=== PATIENT | male | born 1965 | race African-American/Black ===

== ENCOUNTER 2020-11-10 09:38 | Inpatient (IN) | payer MEDICAID ==
[~2020-11-10] VITALS: Ht 188 cm; Wt 85.7 kg
[2020-11-10] MEDS ORDERED: ONDANSETRON HCL 4MG/2ML INJ IV ONE ×3 (10:15→20:45)
[2020-11-10] MEDS ORDERED: MORPHINE SULFATE 4 MG/ML CPJ (NOT FOR IM USE) IV ONE (10:30)
[2020-11-10 11:09] LABS: CHLORIDE 105 mEq/L (98-107); HEMATOCRIT. 48.2 % (42.0-52.0); HEMOGLOBIN. 16.2 g/dL (14.0-18.0); MEAN CORPUSCULAR HEMOGLOBIN 30.3 pg (28.0-32.0); MEAN CORPUSCULAR VOLUME 90.2 fL (80.0-94.0); MEAN PLATELET VOLUME 8.6 fl (7.4-10.4); PLATELET 186 x1000/uL (130-400); RED BLOOD CELL COUNT 5.34 mill/uL (4.7-6.1)
[2020-11-10] MEDS ORDERED: CEFTRIAXONE 1 G PREMIX 50 ML IV ONE (11:15)
[2020-11-10 11:18] LABS: INR 1.1; PROTHROMBIN TIME 11.5 sec (9.6-11.0)
[2020-11-10 11:48] LABS: PLATELET ESTIMATE NORMAL
[2020-11-10 11:49] LABS: CLARITY URINE CLOUDY (CLEAR); COLOR URINE YELLOW (YELLOW); KETONES URINE 3+ (NEGATIVE); LEUKOCYTE ESTERASE URINE 3+ (NEGATIVE); NITRITE URINE POSITIVE (NEGATIVE); OCCULT BLOOD URINE 2+ (NEGATIVE); PROTEIN URINE TRACE (NEGATIVE); SPECIFIC GRAVITY URINE 1.021 (1.005-1.030)
[2020-11-10] MEDS ORDERED: FENTANYL CITRATE/PF 50MCG/ML 2ML VIAL IV ONE (12:30)
[2020-11-10] MEDS ORDERED: PIPERACILLIN/TAZOBACTAM 3.375GM/50ML PREMIX IV NR (16:30)
[2020-11-10] MEDS ORDERED: DEXT 5%/0.9% NACL 1,000 ML IV ONE (16:30)
[2020-11-10] MEDS ORDERED: ACETAMINOPHEN 325MG TABLET PO PRN (21:45)
[2020-11-10 23:42] VITALS: BP 137/84
[2020-11-10] MEDS ORDERED: ATEN-42 MT (23:46)
[2020-11-10] MEDS ORDERED: GABA-532 MT (23:46)
[2020-11-10] MEDS ORDERED: IBUP-2437 MT (23:46)
[2020-11-10] MEDS ORDERED: LISI2.5T47 MT (23:46)
[2020-11-10 23:52] VITALS: BP 137/84
[2020-11-11] MEDS: DEXT 5%/0.45% NACL KCL 20MEQ/L 1,000 ML IV SCH ×3 (01:41→17:04)
[2020-11-11 04:00] VITALS: BP 126/81
[2020-11-11 06:53] LABS: HEMATOCRIT. 42.2 % (42.0-52.0); HEMOGLOBIN. 14.3 g/dL (14.0-18.0); MEAN CORPUSCULAR HEMOGLOBIN 30.5 pg (28.0-32.0); MEAN PLATELET VOLUME 8.3 fl (7.4-10.4); PLATELET 164 x1000/uL (130-400); RED BLOOD CELL COUNT 4.69 mill/uL (4.7-6.1)
[2020-11-11 07:06] LABS: CHLORIDE 106 mEq/L (98-107)
[2020-11-11 08:00] VITALS: BP 127/82
[2020-11-11] MEDS ORDERED: PNEUMOCOCCAL 23-VAL P-SAC VAC 0.5 ML IM ONE (08:00)
[2020-11-11] MEDS: MORPHINE SULFATE 2 MG/ML CPJ (NOT FOR IM USE) IV PRN ×2 (09:30→14:08)
[2020-11-11] MEDS: INFLUENZA VACCINE 05/PF 0.5 ML VIAL IM ONE ×2 (09:32→10:00)
[2020-11-11 12:00] VITALS: BP 124/87
[2020-11-11] MEDS ORDERED: CEFTRIAXONE 1 G PREMIX 50 ML IV SCH (12:00)
[2020-11-11] MEDS: CEFTRIAXONE 1,000 MG in DEXTROSE 5% WATER 50 ML IV SCH (12:33)
[2020-11-11 14:33] LABS: PLATELET ESTIMATE NORMAL
[2020-11-11] MEDS: TAMSULOSIN HCL 0.4MG SR CAPSULE PO SCH (15:07)
[2020-11-11 16:00] VITALS: BP_SYST 144; BP_SYST 97; BP_DIAS 59; BP_DIAS 94
[2020-11-11 16:30] VITALS: BP 141/65
[2020-11-11] MEDS: ONDANSETRON HCL 4MG/2ML INJ IV PRN (17:21)
[2020-11-11] MEDS ORDERED: MAGNESIUM/ALUMINUM HYDROXIDE/SIMETHICONE 30ML UDC PO PRN (17:30)
[2020-11-11] MEDS: OMEPRAZOLE 20MG CAPSULE EXTENDED RELEASE PO SCH (17:43)
[2020-11-11] MEDS: HYDROCODONE/ACETAMINOPHEN 5/325MG TABLET PO PRN (17:43)
[2020-11-11 20:00] VITALS: BP 139/85
[2020-11-11 23:14] LABS: *AMPHETAMINES SCREEN URINE NEGATIVE (NEGATIVE); *BARBITURATES SCREEN URINE NEGATIVE (NEGATIVE); *BENZODIAZEPINES SCREEN URINE NEGATIVE (NEGATIVE); *COCAINE SCREEN URINE NEGATIVE (NEGATIVE); METHADONE URINE SCREEN NEGATIVE (NEGATIVE); OPIATES URINE SCREEN PRESUMTIVE POSITIVE (NEGATIVE)
[2020-11-11 23:15] LABS: CANNABINOID URINE SCREEN NEGATIVE (NEGATIVE); PHENCYCLIDINE URINE SCREEN NEGATIVE (NEGATIVE)
[2020-11-12] VITALS: BP 134/87
[2020-11-12] MEDS: DEXT 5%/0.45% NACL KCL 20MEQ/L 1,000 ML IV SCH ×3 (02:27→16:53)
[2020-11-12] MEDS: HYDROCODONE/ACETAMINOPHEN 5/325MG TABLET PO PRN ×3 (02:38→17:09)
[2020-11-12 04:00] VITALS: BP 134/84
[2020-11-12 07:11] LABS: BASOPHILS % 0.2 % (0.0-2.0); EOSINOPHILS % 0.1 % (0.0-5.0); HEMATOCRIT. 39.7 % (42.0-52.0); HEMOGLOBIN. 13.4 g/dL (14.0-18.0); LYMPHOCYTES % 8.5 % (20.0-50.0); MEAN CORPUSCULAR HEMOGLOBIN 30.6 pg (28.0-32.0); MEAN CORPUSCULAR VOLUME 90.2 fL (80.0-94.0); MEAN PLATELET VOLUME 8.9 fl (7.4-10.4); MONOCYTES % 7.2 % (2.0-8.0); PLATELET 157 x1000/uL (130-400); RED CELL DISTRIBUTION WIDTH 14.1 % (11.6-14.6)
[2020-11-12 07:24] LABS: CHLORIDE 105 mEq/L (98-107)
[2020-11-12 08:00] VITALS: BP 135/88
[2020-11-12] MEDS: TAMSULOSIN HCL 0.4MG SR CAPSULE PO SCH (08:41)
[2020-11-12] MEDS: OMEPRAZOLE 20MG CAPSULE EXTENDED RELEASE PO SCH (08:41)
[2020-11-12] MEDS: CEFTRIAXONE 1,000 MG in DEXTROSE 5% WATER 50 ML IV SCH (11:31)
[2020-11-12 12:00] VITALS: BP 139/89
[2020-11-12] MEDS ORDERED: POTASSIUM CHLORIDE 20MEQ TABLET SR PO NR (13:45)
[2020-11-12 16:00] VITALS: BP 130/88
[2020-11-12] MEDS ORDERED: TAMS-11 PO (17:15)
[2020-11-12] MEDS ORDERED: LEVO500T89 MT (17:15)
[2020-11-12] MEDS: DOCUSATE SODIUM SUGAR FREE 100MG/10ML UDC PO SCH (18:35)
[2020-11-12 20:00] VITALS: BP 147/99
[2020-11-12] MEDS: LACTULOSE 20G/30ML UDC PO PRN (21:34)
[2020-11-13] VITALS: BP 145/92
[2020-11-13] MEDS: DEXT 5%/0.45% NACL KCL 20MEQ/L 1,000 ML IV SCH ×3 (01:06→13:33)
[2020-11-13 04:00] VITALS: BP 133/92
[2020-11-13] MEDS: HYDROCODONE/ACETAMINOPHEN 5/325MG TABLET PO PRN (06:48)
[2020-11-13 08:00] VITALS: BP 137/92
[2020-11-13] MEDS: LACTULOSE 20G/30ML UDC PO PRN (08:23)
[2020-11-13] MEDS: TAMSULOSIN HCL 0.4MG SR CAPSULE PO SCH (08:23)
[2020-11-13] MEDS: DOCUSATE SODIUM SUGAR FREE 100MG/10ML UDC PO SCH (08:30)
[2020-11-13] MEDS ORDERED: FAMOTIDINE 20MG TABLET PO SCH (09:00)
[2020-11-13] MEDS ORDERED: SORBITOL 70% SOLN 30ML PO SCH (10:45)
[2020-11-13 12:00] VITALS: BP 131/91
[2020-11-13] MEDS ORDERED: NA PHOS,M-B/NA PHOS,DI-BA ENEMA 118ML PR NR (13:30)
[2020-11-13] MEDS: CEFTRIAXONE 1,000 MG in DEXTROSE 5% WATER 50 ML IV SCH (13:32)
[2020-11-13] MEDS: ONDANSETRON HCL 4MG/2ML INJ IV PRN (13:33)
[2020-11-13] MEDS ORDERED: ONDANSETRON HCL 4MG TABLET PO PRN (14:00)
[2020-11-13 14:45] VITALS: BP 145/131
== END 2020-11-13 18:00 | disposition home or self-care (01) | DRG 720 ==
LOC: ER 09:38 → 8WST 20:46 → CANRESERV 20:52 → ENRESERV 20:52 → EDBEDREQTM 21:00 → EDBEDREQ 21:00 → ENRESERV 21:40
PROVIDERS: ADMIT Internal Medicine; ATTEND Internal Medicine
DX: A41.9 Sepsis, unspecified organism (principal); G82.20 Paraplegia, unspecified; N39.0 Urinary tract infection, site not specified; I10 Essential (primary) hypertension; K37 Unspecified appendicitis; K21.9 Gastro-esophageal reflux disease without esophagitis; N40.0 Benign prostatic hyperplasia without lower urinary tract symptoms; R32 Unspecified urinary incontinence
CPT/HCPCS: 36415; 74176; 80048; 80053; 80305; 81003; 84484; 85025; 87077; 87186; 90686; 90732; 93005; 99291; J0696; J2270; J2405; J2543; J3010; J7040; J7042; J7060; Q0162

== ENCOUNTER 2021-01-14 21:50 | Emergency (ER) | payer MEDICAID ==
[~2021-01-14] VITALS: Ht 188 cm; Wt 100.0 kg
[~2021-01-14 21:50] MED LIST: ATEN-42 MT; GABA-532 MT; IBUP-2437 MT; LEVO500T89 MT; LISI2.5T47 MT; TAMS-11 PO
[2021-01-14] MEDS ORDERED: ONDANSETRON HCL 4MG/2ML INJ IV STA (22:40)
[2021-01-14] MEDS ORDERED: KETOROLAC 30MG/ML VIAL IV STA (22:40)
[2021-01-14] MEDS ORDERED: SODIUM CHLORIDE 0.9% 1,000 ML IV ONE (22:45)
[2021-01-14 22:55] LABS: BASOPHILS % 0.3 % (0.0-2.0); EOSINOPHILS % 0.3 % (0.0-5.0); HEMATOCRIT. 44.8 % (42.0-52.0); HEMOGLOBIN. 15.3 g/dL (14.0-18.0); LYMPHOCYTES % 9.5 % (20.0-50.0); MEAN CORPUSCULAR HEMOGLOBIN 30.5 pg (28.0-32.0); MEAN CORPUSCULAR VOLUME 89.6 fL (80.0-94.0); MONOCYTES % 5.4 % (2.0-8.0); NEUTROPHILS % 84.5 % (40.0-76.0); PLATELET 182 x1000/uL (130-400); RED CELL DISTRIBUTION WIDTH 15.2 % (11.6-14.6)
[2021-01-15 00:11] LABS: CHLORIDE 111 mEq/L (98-107)
[2021-01-15 00:14] LABS: ETHANOL BLOOD < 10 mg/dL
[2021-01-15] MEDS ORDERED: MORPHINE SULFATE 4 MG/ML CPJ (NOT FOR IM USE) IV STA (01:42)
[2021-01-15] MEDS ORDERED: ONDANSETRON HCL 4MG/2ML INJ IV STA (01:42)
[2021-01-15] MEDS ORDERED: OMEP40CA12 MT (01:48)
[2021-01-15 03:08] VITALS: BP 140/90
== END 2021-01-15 03:09 | disposition home or self-care (01) ==
LOC: ER 21:50
DX: R10.9 Unspecified abdominal pain (principal); I10 Essential (primary) hypertension; L89.90 Pressure ulcer of unspecified site, unspecified stage; G71.09 Other specified muscular dystrophies; Z99.3 Dependence on wheelchair
CPT/HCPCS: 36415; 74176; 80053; 80320; 83690; 85025; 93005; 96361; 96374; 96375; 96376; 99285; J1885; J2270; J2405; J7030; Z7610; G0480

== ENCOUNTER 2021-06-08 15:18 | Inpatient (IN) | payer MEDICAID, OTHER ==
[~2021-06-08] VITALS: Ht 185.4 cm; Wt 93.9 kg
[~2021-06-08 15:18] MED LIST changes: +OMEP40CA20 MT
[2021-06-08 17:18] LABS: BASOPHILS % 0.4 % (0.0-2.0); EOSINOPHILS % 0.9 % (0.0-5.0); HEMATOCRIT. 50.7 % (42.0-52.0); HEMOGLOBIN. 16.7 g/dL (14.0-18.0); MEAN CORPUSCULAR HEMOGLOBIN 29.8 pg (28.0-32.0); MEAN CORPUSCULAR VOLUME 90.7 fL (80.0-94.0); MEAN PLATELET VOLUME 9.5 fl (7.4-10.4); MONOCYTES % 5.4 % (2.0-8.0); NEUTROPHILS % 82.3 % (40.0-76.0); PLATELET 214 x1000/uL (130-400); RED BLOOD CELL COUNT 5.59 mill/uL (4.7-6.1); RED CELL DISTRIBUTION WIDTH 14.8 % (11.6-14.6)
[2021-06-08 17:27] LABS: CHLORIDE 106 mEq/L (98-107)
[2021-06-08 17:40] LABS: CREATINE KINASE 170 IU/L (39-308)
[2021-06-08] MEDS ORDERED: MORPHINE SULFATE 4 MG/ML CPJ (NOT FOR IM USE) IV ONE (18:45)
[2021-06-08] MEDS: CLONIDINE 0.1MG TABLET PO PRN (21:05)
[2021-06-09] MEDS ORDERED: MORPHINE SULFATE 2 MG/ML CPJ (NOT FOR IM USE) IV NR (01:45)
[2021-06-09 09:50] VITALS: BP 147/93
[2021-06-09] MEDS ORDERED: LISI2.5T47 MT (10:03)
[2021-06-09 12:00] VITALS: BP_SYST 135; BP_SYST 147; BP_DIAS 85; BP_DIAS 93
[2021-06-09] MEDS ORDERED: DOCUSATE SODIUM 100MG CAPSULE PO PRN (14:45)
[2021-06-09] MEDS ORDERED: ONDANSETRON HCL 4MG/2ML INJ IV PRN (14:45)
[2021-06-09] MEDS ORDERED: MAGNESIUM/ALUMINUM HYDROXIDE/SIMETHICONE 30ML UDC PO PRN (14:45)
[2021-06-09] MEDS ORDERED: CEFTRIAXONE 1 G PREMIX 50 ML IV SCH (14:45)
[2021-06-09 14:58] VITALS: BP 147/93
[2021-06-09] MEDS ORDERED: INFLUENZA VACCINE 05/PF 0.5 ML SYRINGE IM ONE (15:30)
[2021-06-09 16:00] VITALS: BP 148/93
[2021-06-09] MEDS ORDERED: ENOXAPARIN 40MG/0.4ML SYR SUBCUT SCH (16:00)
[2021-06-09] MEDS: CEFTRIAXONE 1,000 MG in DEXTROSE 5% WATER 50 ML IV SCH (17:13)
[2021-06-09 20:00] VITALS: BP 157/105
[2021-06-09] MEDS: HYDROCODONE/ACETAMINOPHEN 5/325MG TABLET PO PRN (22:05)
[2021-06-10] VITALS (7 sets, daily range): BP systolic 119–156; BP diastolic 60–107
[2021-06-10] MEDS: HYDROCODONE/ACETAMINOPHEN 5/325MG TABLET PO PRN ×3 (02:32→22:01)
[2021-06-10] MEDS ORDERED: ENOXAPARIN 100MG/ML SYR SUBCUT SCH (04:00)
[2021-06-10] MEDS: OMEPRAZOLE 20MG CAPSULE EXTENDED RELEASE PO SCH ×2 (06:46→08:05)
[2021-06-10] MEDS ORDERED: HYDR30CR80 TP (10:22)
[2021-06-10] MEDS ORDERED: APIX5TAB MT (10:22)
[2021-06-10] MEDS ORDERED: SENN8.6T21 MT (10:22)
[2021-06-10 13:03] LABS: BASOPHILS % 0.3 % (0.0-2.0); EOSINOPHILS % 0.9 % (0.0-5.0); HEMATOCRIT. 49.3 % (42.0-52.0); HEMOGLOBIN. 16.8 g/dL (14.0-18.0); LYMPHOCYTES % 13.2 % (20.0-50.0); MEAN CORPUSCULAR HEMOGLOBIN 30.5 pg (28.0-32.0); MEAN CORPUSCULAR VOLUME 89.7 fL (80.0-94.0); MEAN PLATELET VOLUME 8.7 fl (7.4-10.4); MONOCYTES % 7.1 % (2.0-8.0); NEUTROPHILS % 78.5 % (40.0-76.0); PLATELET 211 x1000/uL (130-400); RED CELL DISTRIBUTION WIDTH 14.6 % (11.6-14.6)
[2021-06-10 13:39] LABS: CHLORIDE 104 mEq/L (98-107)
[2021-06-10 13:48] LABS: PHOSPHORUS 2.6 mg/dL (2.5-4.9)
[2021-06-10] MEDS: CEFTRIAXONE 1,000 MG in DEXTROSE 5% WATER 50 ML IV SCH (15:32)
[2021-06-10] MEDS: ENOXAPARIN 100MG/ML SYR SUBCUT SCH (15:33)
[2021-06-10] MEDS ORDERED: NALOXONE HCL 0.4MG/ML VIAL IV PRN (18:30)
[2021-06-11] VITALS: BP 134/94
[2021-06-11 04:00] VITALS: BP 155/96
[2021-06-11] MEDS: HYDROCODONE/ACETAMINOPHEN 5/325MG TABLET PO PRN ×3 (05:29→22:39)
[2021-06-11] MEDS: ENOXAPARIN 100MG/ML SYR SUBCUT SCH ×2 (05:29→17:37)
[2021-06-11 07:29] LABS: BASOPHILS % 0.6 % (0.0-2.0); EOSINOPHILS % 1.3 % (0.0-5.0); HEMATOCRIT. 50.9 % (42.0-52.0); HEMOGLOBIN. 16.9 g/dL (14.0-18.0); LYMPHOCYTES % 12.7 % (20.0-50.0); MEAN CORPUSCULAR HEMOGLOBIN 30.1 pg (28.0-32.0); MEAN CORPUSCULAR VOLUME 90.6 fL (80.0-94.0); MEAN PLATELET VOLUME 9.2 fl (7.4-10.4); MONOCYTES % 7.5 % (2.0-8.0); NEUTROPHILS % 77.9 % (40.0-76.0); PLATELET 212 x1000/uL (130-400); RED BLOOD CELL COUNT 5.62 mill/uL (4.7-6.1); RED CELL DISTRIBUTION WIDTH 14.6 % (11.6-14.6)
[2021-06-11 07:43] LABS: CHLORIDE 101 mEq/L (98-107)
[2021-06-11 07:52] LABS: PHOSPHORUS 3.1 mg/dL (2.5-4.9)
[2021-06-11 08:00] VITALS: BP 135/90
[2021-06-11] MEDS ORDERED: MAGNESIUM CITRATE 300ML SOLUTION PO NR (10:45)
[2021-06-11 16:00] VITALS: BP 156/98
[2021-06-11] MEDS: CEFTRIAXONE 1,000 MG in DEXTROSE 5% WATER 50 ML IV SCH (17:36)
[2021-06-11 20:00] VITALS: BP 161/111
[2021-06-11] MEDS: CLONIDINE 0.1MG TABLET PO PRN (20:53)
[2021-06-12] VITALS: BP 152/111
[2021-06-12 04:00] VITALS: BP 126/92
[2021-06-12] MEDS: ENOXAPARIN 100MG/ML SYR SUBCUT SCH ×2 (06:42→17:45)
[2021-06-12] MEDS: FAMOTIDINE 20MG TABLET PO SCH ×2 (06:42→16:52)
[2021-06-12 08:00] VITALS: BP 133/96
[2021-06-12 12:00] VITALS: BP 143/97
[2021-06-12 16:00] VITALS: BP 138/100
[2021-06-12] MEDS: CEFTRIAXONE 1,000 MG in DEXTROSE 5% WATER 50 ML IV SCH (16:53)
[2021-06-12] MEDS: HYDROCODONE/ACETAMINOPHEN 5/325MG TABLET PO PRN ×2 (16:53→22:28)
[2021-06-12 20:00] VITALS: BP 144/100
[2021-06-12] MEDS: CLONIDINE 0.1MG TABLET PO PRN (20:27)
[2021-06-13] VITALS: BP 130/79
[2021-06-13 04:00] VITALS: BP 119/69
[2021-06-13] MEDS: FAMOTIDINE 20MG TABLET PO SCH ×2 (06:31→18:00)
[2021-06-13] MEDS: ENOXAPARIN 100MG/ML SYR SUBCUT SCH ×2 (06:31→18:00)
[2021-06-13] MEDS: ACETAMINOPHEN 325MG TABLET PO PRN (07:03)
[2021-06-13 08:00] VITALS: BP 149/102
[2021-06-13] MEDS: CLONIDINE 0.1MG TABLET PO PRN (08:42)
[2021-06-13] MEDS: HYDROCODONE/ACETAMINOPHEN 5/325MG TABLET PO PRN ×2 (08:43→20:43)
[2021-06-13 12:00] VITALS: BP 124/91
[2021-06-13] MEDS: LISINOPRIL 2.5MG TABLET PO SCH (14:01)
[2021-06-13] MEDS: CEFTRIAXONE 1,000 MG in DEXTROSE 5% WATER 50 ML IV SCH (15:53)
[2021-06-13 16:00] VITALS: BP 144/97
[2021-06-13 20:00] VITALS: BP 126/85
[2021-06-14] VITALS: BP 135/80
[2021-06-14 04:00] VITALS: BP 125/75
[2021-06-14] MEDS: ENOXAPARIN 100MG/ML SYR SUBCUT SCH ×2 (05:56→17:17)
[2021-06-14] MEDS: FAMOTIDINE 20MG TABLET PO SCH ×2 (05:57→17:16)
[2021-06-14] MEDS: HYDROCODONE/ACETAMINOPHEN 5/325MG TABLET PO PRN (06:01)
[2021-06-14 08:00] VITALS: BP 128/90
[2021-06-14] MEDS: LISINOPRIL 2.5MG TABLET PO SCH (08:35)
[2021-06-14 12:00] VITALS: BP 134/95
[2021-06-14] MEDS: GABAPENTIN 300MG CAPSULE PO SCH ×2 (14:33→21:34)
[2021-06-14 16:00] VITALS: BP 140/95
[2021-06-14] MEDS: ACETAMINOPHEN 325MG TABLET PO PRN ×2 (17:16→21:35)
[2021-06-14 20:00] VITALS: BP 124/85
[2021-06-15] VITALS: BP 139/86
[2021-06-15 04:00] VITALS: BP 121/77
[2021-06-15] MEDS: FAMOTIDINE 20MG TABLET PO SCH ×2 (06:09→17:17)
[2021-06-15] MEDS: GABAPENTIN 300MG CAPSULE PO SCH ×3 (06:09→21:10)
[2021-06-15] MEDS: ENOXAPARIN 100MG/ML SYR SUBCUT SCH ×2 (06:11→17:18)
[2021-06-15 08:00] VITALS: BP 128/76
[2021-06-15] MEDS: LISINOPRIL 2.5MG TABLET PO SCH (09:16)
[2021-06-15 12:00] VITALS: BP 138/89
[2021-06-15] MEDS: ACETAMINOPHEN 325MG TABLET PO PRN (15:07)
[2021-06-15 16:00] VITALS: BP 138/98
[2021-06-15] MEDS: CLONIDINE 0.1MG TABLET PO PRN (18:27)
[2021-06-15 20:33] VITALS: BP 129/95
[2021-06-16] VITALS: BP 117/71
[2021-06-16] MEDS: ACETAMINOPHEN 325MG TABLET PO PRN ×3 (00:45→22:52)
[2021-06-16 04:00] VITALS: BP 122/85
[2021-06-16] MEDS: GABAPENTIN 300MG CAPSULE PO SCH ×3 (05:48→21:20)
[2021-06-16] MEDS: ENOXAPARIN 100MG/ML SYR SUBCUT SCH ×2 (05:49→17:17)
[2021-06-16 06:52] LABS: BASOPHILS % 0.5 % (0.0-2.0); EOSINOPHILS % 1.8 % (0.0-5.0); HEMATOCRIT. 48.7 % (42.0-52.0); HEMOGLOBIN. 16.1 g/dL (14.0-18.0); LYMPHOCYTES % 21.3 % (20.0-50.0); MEAN CORPUSCULAR HEMOGLOBIN 29.8 pg (28.0-32.0); MEAN CORPUSCULAR VOLUME 90.1 fL (80.0-94.0); MEAN PLATELET VOLUME 9.6 fl (7.4-10.4); MONOCYTES % 5.9 % (2.0-8.0); NEUTROPHILS % 70.5 % (40.0-76.0); PLATELET 230 x1000/uL (130-400); RED CELL DISTRIBUTION WIDTH 14.2 % (11.6-14.6)
[2021-06-16 06:56] LABS: CHLORIDE 105 mEq/L (98-107)
[2021-06-16 07:00] LABS: INR 1.1; PROTHROMBIN TIME 11.5 sec (9.6-11.0)
[2021-06-16 08:00] VITALS: BP 132/90
[2021-06-16] MEDS: LISINOPRIL 2.5MG TABLET PO SCH (09:09)
[2021-06-16 12:00] VITALS: BP 148/85
[2021-06-16 16:00] VITALS: BP 145/91
[2021-06-16 20:00] VITALS: BP 133/91
[2021-06-17] VITALS: BP 142/94
[2021-06-17] MEDS ORDERED: NALOXONE HCL 0.4 MG/ML 1ML VIAL IV PRN (00:45)
[2021-06-17 04:00] VITALS: BP 121/76
[2021-06-17] MEDS: GABAPENTIN 300MG CAPSULE PO SCH ×2 (06:40→14:12)
[2021-06-17] MEDS: HYDROCODONE/ACETAMINOPHEN 5/325MG TABLET PO PRN ×2 (06:40→14:12)
[2021-06-17] MEDS: ENOXAPARIN 100MG/ML SYR SUBCUT SCH ×2 (06:40→17:31)
[2021-06-17 08:00] VITALS: BP 163/107
[2021-06-17] MEDS: LISINOPRIL 2.5MG TABLET PO SCH (09:23)
[2021-06-17 12:00] VITALS: BP 145/100
[2021-06-17 16:00] VITALS: BP 159/107
[2021-06-17 20:00] VITALS: BP 131/97
== END 2021-06-17 20:01 | DRG 300 ==
LOC: ER 15:18 → MICUSO 20:26 → 6EST 06-09 07:39
PROVIDERS: ADMIT Internal Medicine; ATTEND Internal Medicine
DX: I82.411 Acute embolism and thrombosis of right femoral vein (principal); G82.20 Paraplegia, unspecified; R65.10 Systemic inflammatory response syndrome (SIRS) of non-infectious origin without acute organ dysfunction; I10 Essential (primary) hypertension; N40.0 Benign prostatic hyperplasia without lower urinary tract symptoms; R53.1 Weakness; Z20.822 Contact with and (suspected) exposure to COVID-19; E80.6 Other disorders of bilirubin metabolism; R26.2 Difficulty in walking, not elsewhere classified; D72.829 Elevated white blood cell count, unspecified; Z99.3 Dependence on wheelchair; Z79.899 Other long term (current) drug therapy
CPT/HCPCS: 36415; 74176; 76700; 80048; 80053; 80076; 82550; 83735; 84100; 85025; 87426; 90686; 93970; 97161; 97166; 99285; C1893; J0696; J1650; J2270; J7040; J7060